=== PATIENT | female | born 1955 | race Hispanic/Latino ===

== ENCOUNTER 2018-10-25 17:21 | Emergency (ER) | payer OTHER ==
--- OUTSIDE RECORDS SUMMARY | 2018-10-25 17:23 | XMS REPORT ---
:1955 [facility] Address [address] [place] [address] Dr. Gonzalez [address] [place] [id number] Care Team Providers Name Role Phone Unavailable Unavailable Unavailable Problems This patient has no known problems. Allergies, Adverse Reactions, Alerts This patient has no known allergies or adverse reactions. Medications This patient has no known medications.
[2018-10-25] MEDS ORDERED: FENTANYL CITR 100 MCG/2 ML ONE (17:41)
[2018-10-25 17:57] LABS: Absolute Lymphocytes (CBC) 2.3 K/uL (0.7-4.9); Hematocrit 35.2 % (36.0-45.0); Lymphocytes % 28.7 % (15.3-44.8); MPV 8.4 fL (7.6-11.3)
[2018-10-25 18:12] LABS: Potassium 3.5 mmol/L (3.5-5.1)
--- NOTE | 2018-10-25 18:28 | RAD REPORT ---
EXAM DESCRIPTION: RAD - Forearm Right - 10/25/2018 6:15 pm CLINICAL HISTORY: Right arm pain status post fall FINDINGS: Markedly displaced fracture involves the distal diaphysis right radius with angulation at the fracture site Comminuted avulsion fracture involves the ulnar styloid process
[2018-10-25] MEDS ORDERED: KETAMINE HCL 500 MG/5 ML VIAL ONE (18:43)
[2018-10-25] MEDS ORDERED: CEFAZOLIN/SWI 1gm 1 GM/10 ML SYR ONE (18:44)
[2018-10-25] MEDS ORDERED: ONDANSETRON 4 MG/2 ML VIAL ONE (18:46)
--- NOTE | 2018-10-25 19:44 | RAD REPORT ---
EXAM DESCRIPTION: RAD - Forearm Right - 10/25/2018 7:35 pm CLINICAL HISTORY: Right arm pain status post fall FINDINGS: A splint immobilizes previously described fractures of the radius and ulna
--- NOTE | 2018-10-25 19:44 | EDPHYS ---
Physician Documentation [facility] Name: Mary Lawson Age: 63 yrs Sex: Female : 1955 Arrival Date: 10/25/2018 Time: 17:22 Bed 13 Private MD: Herber Roy ED Physician Jarvis Hale HPI: 10/25 17:39 This 63 yrs old Female presents to ER via Ambulatory with complaints of Fall snw Injury. 17:39 Details of fall: The patient fell from an upright position, while walking. Onset: The snw symptoms/episode began/occurred suddenly, just prior to arrival. Associated injuries: The patient sustained dorsal aspect of right forearm, deformity, obvious fracture, painful injury, right knee, abrasion, contusion. Severity of symptoms: At their worst the symptoms were severe. The patient has not experienced similar symptoms in the past. It is unknown whether or not the patient has recently seen a physician. history of aortic valve surgery on coumadin. Historical: - Allergies: 17:37 No Known Allergies; hb - Immunization history:: Adult Immunizations up to date. - Social history:: Smoking status: Patient/guardian denies using tobacco. - Ebola Screening: : No symptoms or risks identified at this time. ROS: 17:39 Constitutional: Negative for fever, chills, and weight loss, Eyes: Negative for injury, snw pain, redness, and discharge, ENT: Negative for injury, pain, and discharge, Neck: Negative for injury, pain, and swelling, Cardiovascular: Negative for chest pain, palpitations, and edema, Respiratory: Negative for shortness of breath, cough, wheezing, and pleuritic chest pain, Abdomen/GI: Negative for abdominal pain, nausea, vomiting, diarrhea, and constipation, Back: Negative for injury and pain, : Negative for injury, bleeding, discharge, and swelling, Skin: Negative for injury, rash, and discoloration, Neuro: Negative for headache, weakness, numbness, tingling, and seizure. 17:39 MS/extremity: Positive for injury or acute deformity, deformity, pain, of the dorsal aspect of right forearm and right wrist, abrasion to right knee as well. Exam: 17:37 Constitutional: This is a well developed, well nourished patient who is awake, alert, snw and in no acute distress. Head/Face: Normocephalic, atraumatic. Eyes: Pupils equal round and reactive to light, extra-ocular motions intact. Lids and lashes normal. Conjunctiva and sclera are non-icteric and not injected. Cornea within normal limits. Periorbital areas with no swelling, redness, or edema. ENT: Nares patent. No nasal discharge, no septal abnormalities noted. Tympanic membranes are normal and external auditory canals are clear. Oropharynx with no redness, swelling, or masses, exudates, or evidence of obstruction, uvula midline. Mucous membranes moist. Neck: Trachea midline, no thyromegaly or masses palpated, and no cervical lymphadenopathy. Supple, full range of motion without nuchal rigidity, or vertebral point tenderness. No Meningismus. Chest/axilla: Normal chest wall appearance and motion. Nontender with no deformity. No lesions are appreciated. Cardiovascular: Regular rate and rhythm with a normal S1 and S2. No gallops, murmurs, or rubs. Normal PMI, no JVD. No pulse deficits. Respiratory: Lungs have equal breath sounds bilaterally, clear to auscultation and percussion. No rales, rhonchi or wheezes noted. No increased work of breathing, no retractions or nasal flaring. Abdomen/GI: Soft, non-tender, with normal bowel sounds. No distension or tympany. No guarding or rebound. No evidence of tenderness throughout. Back: No spinal tenderness. No costovertebral tenderness. Full range of motion. Neuro: Awake and alert, GCS 15, oriented to person, place, time, and situation. Cranial nerves II-XII grossly intact. Motor strength 5/5 in all extremities. Sensory grossly intact. Cerebellar exam normal. Normal gait. Psych: Awake, alert, with orientation to person, place and time. Behavior, mood, and affect are within normal limits. 17:37 Skin: Appearance: normal except for affected area, injury, abrasion(s), small abrasion noted, of the right knee, obvious fracture of right forearm, closed, pulses present, sensation present. Vital Signs: 17:35 BP 168 / 94; Pulse 65; Resp 16; Temp 98.1; Pulse Ox 100% on R/A; Weight 79.38 kg; hb Height 5 ft. 2 in. (157.48 cm); Pain 10/10; 18:35 BP 164 / 82; Pulse 72; Resp 17; Pulse Ox 100% on R/A; sg 19:25 rr5 20:50 BP 154 / 78; Pulse 60; Resp 17; Temp 98; Pulse Ox 100% on R/A; rr5 21:30 BP 133 / 70; Pulse 62; Resp 17; Pulse Ox 99% on R/A; rr5 17:35 Body Mass Index 32.01 (79.38 kg, 157.48 cm) hb 19:25 succeeding VS please see the sedation form. rr5 [place] Coma Score: 17:35 Eye Response: spontaneous(4). Verbal Response: oriented(5). Motor Response: obeys hb commands(6). Total: 15. 18:35 Eye Response: spontaneous(4). Verbal Response: oriented(5). Motor Response: obeys sg commands(6). Total: 15. Trauma Score (Adult): 17:35 Eye Response: spontaneous(1); Verbal Response: oriented(1); Motor Response: obeys hb commands(2); Systolic BP: > 89 mm Hg(4); Respiratory Rate: 10 to 29 per min(4); [place] Score: 15; Trauma Score: 12 18:35 Eye Response: spontaneous(1); Verbal Response: oriented(1); Motor Response: obeys sg commands(2); Systolic BP: > 89 mm Hg(4); Respiratory Rate: 10 to 29 per min(4); [place] Score: 15; Trauma Score: 12 Procedures: 19:46 Reduction: of the right wrist, using traction, manipulation, Immobilized with OCL snw splint, Patient tolerated well. Post reduction film - reveals improved alignment. Moderate sedation: Pre-procedure assessment: the patient has been NPO 4 hour(s) prior to arrival, ASA physical classification: II - mild/mod systemic disease that does not interfere with daily routines, Airway assessment: able to hyperextend neck, able to maintain airway, can open mouth without difficulty, Mallampati classification of tongue size: II - faucial pillars and soft palate can be visualized, but uvula is masked by the base of the tongue, Monitoring during procedure: ekg monitor, continuous pulse oximetry, nurse at bedside at all times, Medications employed: Ketamine, 120 mg(s), Post-procedure assessment: the patient is not sedated, Respiratory status: even and unlabored, a reversal agent was not used. MDM: 17:28 Patient medically screened. snw 19:45 Data reviewed: vital signs, nurses notes. Data interpreted: Pulse oximetry: on room air snw is 100 %. Interpretation: normal. Counseling: I had a detailed discussion with the patient and/or guardian regarding: the historical points, exam findings, and any diagnostic results supporting the discharge/admit diagnosis, the presence of at least one elevated blood pressure reading (>120/80) during this emergency department visit, lab results, radiology results, the need for outpatient follow up, to return to the emergency department if symptoms worsen or persist or if there are any questions or concerns that arise at home. Response to treatment: the patient's symptoms have markedly improved after treatment. Special discussion: I have referred the patient to see his PCP for further evaluation of high blood pressure. I discussed in detail with the patient the higher chance of wound infection based on his presenting history. Based on the history and exam findings, there is no indication for further emergent testing or inpatient evaluation. I discussed with the patient/guardian the need to see the orthopedic surgeon for further evaluation of the symptoms. I discussed with the patient/guardian the need to see the primary care provider for further evaluation of the symptoms. 10/25 17:37 Order name: CBC with Diff; Complete Time: 18:04 snw 10/25 17:37 Order name: Chem 7; Complete Time: 18:15 snw 10/25 17:37 Order name: Forearm Right XRAY; Complete Time: 18:31 snw 10/25 19:15 Order name: Forearm Right XRAY; Complete Time: 19:58 rr5 10/25 17:37 Order name: Ice pack; Complete Time: 17:48 snw 10/25 17:37 Order name: Wound Care; Complete Time: 17:48 snw 10/25 17:37 Order name: Wound dressing; Complete Time: 17:48 snw 10/25 17:37 Order name: IV Start; Complete Time: 17:48 snw 10/25 18:27 Order name: Misc. Order: fingertraps; Complete Time: 18:42 snw 10/25 18:43 Order name: Conscious Sedation; Complete Time: 19:38 sg 10/25 18:44 Order name: Conscious Sedation; Complete Time: 18:44 sg 10/25 18:46 Order name: Shari Calderon Forearm Splint; Complete Time: 19:32 snw Administered Medications: 17:47 Drug: fentaNYL (PF) 50 mcg {Note: RASS +1.} Route: IVP; Site: left antecubital; sg 19:00 Follow up: Response: RASS: Light sedation (-2) rr5 21:00 Follow up: Response: No adverse reaction rr5 18:38 Drug: fentaNYL (PF) 25 mcg Route: IVP; Site: left antecubital; sg 19:00 Follow up: Response: RASS: Light sedation (-2) rr5 21:00 Follow up: Response: RASS: Alert and Calm (0) rr5 19:00 Drug: Ketamine 1 mg/kg Route: IVP; Site: left antecubital; sg 20:00 Follow up: Response: RASS: Light sedation (-2) rr5 21:00 Follow up: Response: RASS: Alert and Calm (0) rr5 19:40 Drug: Ancef 1 grams Route: IVPB; Site: left antecubital; rr5 Disposition: 10/26 09:27 Co-signature as Attending Physician, Jarvis Hale MD I agree with the assessment and charley plan of care. Disposition: 10/25/18 19:42 Discharged to Home. Impression: Fall on same level, unspecified, Unspecified fracture of right forearm - distal forearm, Displaced fracture of right ulna styloid process. - Condition is Stable. - Discharge Instructions: Cast or Splint Care, Adult, Fall Prevention in the Home, RICE for Routine Care of Injuries, How to Use a Sling. - Prescriptions for Mobic 7.5 mg Oral Tablet - take 1 tablet by ORAL route once daily take with food; 10 tablet. Tylenol- Codeine #3 300-30 mg Oral Tablet - take 2 tablets by ORAL route every 6 hours As needed; 20 tablet. - Medication Reconciliation Form, Thank You Letter, Antibiotic Education, Prescription Opioid Use form. - Follow up: Levi Shah MD; When: 2 - 3 days; Reason: Recheck today's complaints, Continuance of care. Signatures: Dispatcher [employer] Michael Ortiz RN RN sg Anderson, Corey, MD MD cha Therrien, Shelly, STATION OPERATOR-C STATION OPERATOR-CsnNicole Rincon, RN RN John Reyes RN RN rr5 Corrections: (The following items were deleted from the chart) 10/25 19:43 19:42 10/25/2018 19:42 Discharged to Home. Impression: Fall on same level, unspecified. snw Condition is Stable. Forms are Medication Reconciliation Form, Thank You Letter, Antibiotic Education, Prescription Opioid Use. Follow up: Dr. Levi Shah; When: 2 - 3 days; Reason: Recheck today's complaints, Continuance of care. snw 21:34 19:43 10/25/2018 19:42 Discharged to Home. Impression: Fall on same level, unspecified; rr5 Unspecified fracture of right forearm - distal forearm; Displaced fracture of right ulna styloid process. Condition is Stable. Forms are Medication Reconciliation Form, Thank You Letter, Antibiotic Education, Prescription Opioid Use. Follow up: Dr. Levi Shah; When: 2 - 3 days; Reason: Recheck today's complaints, Continuance of care. snw
--- NOTE | 2018-10-25 19:44 | ER ---
Nurse's Notes [facility] Name: Mary Lawson Age: 63 yrs Sex: Female : 1955 Arrival Date: 10/25/2018 Time: 17:22 Bed 13 Private MD: Herber Roy Diagnosis: Fall on same level, unspecified;Unspecified fracture of right forearm-distal forearm;Displaced fracture of right ulna styloid process Presentation: 10/25 17:34 Presenting complaint: Right wrist and right knee pain after mechanical fall from hb standing. Obvious deformity to right wrist and abrasion to right knee noted. Denies other injuries. Negative LOC. Care prior to arrival: Medication(s) given: Motrin, 600 mg. Mechanism of Injury: Fall from standing position. Trauma event details: Injury occurred in the [facility] [place], Injury occurred: at home. Injury occurred: October 25, 2018. 17:34 Acuity: CONSTANCE 3 hb 17:34 Method Of Arrival: Ambulatory hb Historical: - Allergies: 17:37 No Known Allergies; hb - Immunization history:: Adult Immunizations up to date. - Social history:: Smoking status: Patient/guardian denies using tobacco. - Ebola Screening: : No symptoms or risks identified at this time. Screenin:35 Abuse screen: Denies threats or abuse. Denies injuries from another. Tuberculosis hb screening: No symptoms or risk factors identified. Primary Survey: 17:35 NO uncontrolled hemorrhage observed. A: The patient is alert. Airway: patent, No hb supplemental oxygen in use on arrival. Oral cavity: clear. Breathing/Chest: Respiratory pattern: regular, Respiratory effort: spontaneous, unlabored, Chest inspection: symmetrical rise and fall of the chest. Circulation: Pulses: palpable . Skin color: pink, Skin temperature: warm, dry. Disability Alert. Exposure/Environment: There is no evidence of uncontrolled external bleeding. Obvious injury(ies) are noted at this time: obvious deformity to right wrist, abrasion to right outer wrist, abrasion to right knee A warming method has been applied: A warm blanket has been provided to the patient. 19:20 Reassessment Airway Airway Patent Oxygen Ventilator Breathing/Chest Respiratory pattern rr5 Regular Respiratory effort Spontaneous Unlabored Circulation Heart rhythm Sinus rhythm Disability Verbal stimuli. Secondary Survey: 19:20 HEENT: No deficits noted. Gastrointestinal: No deficits noted. : No signs and/or rr5 symptoms were reported regarding the genitourinary system. Musculoskeletal: Capillary refill < 3 seconds. 19:20 Injury Description: fracture to is located right wrist swollen right knee with abrasion.rr5 Assessment: 18:00 General: Appears in no apparent distress. well groomed, well developed, well nourished, sg Behavior is calm, cooperative, appropriate for age. Pain: Complains of pain in right wrist Quality of pain is described as aching, throbbing. Neuro: Level of Consciousness is awake, alert, obeys commands, Oriented to person, place, time, Director Communications are equal bilaterally Moves all extremities. Full function Gait is steady, Speech is normal, Facial symmetry appears normal, Pupils are PERRLA. Cardiovascular: Heart tones S1 S2 present Capillary refill is brisk in bilateral fingers Patient's skin is warm and dry. Chest pain is denied. Respiratory: Airway is patent Respiratory effort is even, unlabored, Respiratory pattern is regular, symmetrical, Breath sounds are clear bilaterally. GI: No signs and/or symptoms were reported involving the gastrointestinal system. : No signs and/or symptoms were reported regarding the genitourinary system. EENT: No signs and/or symptoms were reported regarding the EENT system. Derm: Skin is pink, warm \T\ dry. Musculoskeletal: Circulation, motion, and sensation intact. Range of motion: limited in right wrist deformity noted to right wrist. 19:00 Reassessment: Patient appears in no apparent distress at this time. conscious sedation sg for closed reduction of right wrist/forearm. 19:25 Reassessment: Patient appears in no apparent distress at this time. patient received rr5 post conscious sedation manual reduction of right forearm. 19:25 General: Appears in no apparent distress. Behavior is drowsy. Pain: Unable to use pain rr5 scale. Patient appears to be moaning, sedated. Neuro: Level of Consciousness is sedated. Pupils are PERRLA. Cardiovascular: Capillary refill < 3 seconds Patient's skin is warm and dry. Respiratory: Airway is patent Respiratory effort is even, unlabored, Respiratory pattern is regular, symmetrical. GI: No signs and/or symptoms were reported involving the gastrointestinal system. : No signs and/or symptoms were reported regarding the genitourinary system. EENT: No signs and/or symptoms were reported regarding the EENT system. Derm: Wound noted right wrist and right forearm Wound is abrasion. Musculoskeletal: Capillary refill < 3 seconds. 20:05 Reassessment: Patient appears in no apparent distress at this time. patient still rr5 drowsy. awaiting to become fully awake then for discharge. 20:49 Reassessment: Patient appears in no apparent distress at this time. Patient and/or rr5 family updated on plan of care and expected duration. Pain level reassessed. Patient is alert, oriented x 3, equal unlabored respirations, skin warm/dry/pink. reassess by ED provider patient is awake and respond to verbal command. oxygen discontinued. 21:30 Reassessment: Patient appears in no apparent distress at this time. Patient and/or rr5 family updated on plan of care and expected duration. Pain level reassessed. Patient is alert, oriented x 3, equal unlabored respirations, skin warm/dry/pink. discharge instruction given and explained to patient and multi care technician without complaints made. assisted thru wheelchair going to private car. Patient states feeling better. Patient states symptoms have improved. Vital Signs: 17:35 BP 168 / 94; Pulse 65; Resp 16; Temp 98.1; Pulse Ox 100% on R/A; Weight 79.38 kg; hb Height 5 ft. 2 in. (157.48 cm); Pain 10/10; 18:35 BP 164 / 82; Pulse 72; Resp 17; Pulse Ox 100% on R/A; sg 19:25 rr5 20:50 BP 154 / 78; Pulse 60; Resp 17; Temp 98; Pulse Ox 100% on R/A; rr5 21:30 BP 133 / 70; Pulse 62; Resp 17; Pulse Ox 99% on R/A; rr5 17:35 Body Mass Index 32.01 (79.38 kg, 157.48 cm) hb 19:25 succeeding VS please see the sedation form. rr5 [place] Coma Score: 17:35 Eye Response: spontaneous(4). Verbal Response: oriented(5). Motor Response: obeys hb commands(6). Total: 15. 18:35 Eye Response: spontaneous(4). Verbal Response: oriented(5). Motor Response: obeys sg commands(6). Total: 15. Trauma Score (Adult): 17:35 Eye Response: spontaneous(1); Verbal Response: oriented(1); Motor Response: obeys hb commands(2); Systolic BP: > 89 mm Hg(4); Respiratory Rate: 10 to 29 per min(4); [place] Score: 15; Trauma Score: 12 18:35 Eye Response: spontaneous(1); Verbal Response: oriented(1); Motor Response: obeys sg commands(2); Systolic BP: > 89 mm Hg(4); Respiratory Rate: 10 to 29 per min(4); [place] Score: 15; Trauma Score: 12 ED Course: 17:22 Patient arrived in ED. dl4 17:22 Herber Roy MD is Private Physician. dl4 17:27 [facility]olen [facility]C [facility] snw 17:27 Jarvis Hale MD is Attending Physician. snw 17:35 Triage completed. hb 17:37 Arm band placed on. hb 17:40 Michael Prado RN is Primary Nurse. sg 17:44 Initial lab(s) drawn, by wv, sent to lab. Inserted saline lock: 20 gauge in left dh3 antecubital area, using aseptic technique. Blood collected. 18:15 Forearm Right XRAY In Process Unspecified. EDMS 19:00 Assist provider with reduction of right wrist using manipulation, Set up for procedure. sg Performed by Tiffanie AYALA Immobilized with sling, Patient tolerated well. 19:12 Orthoglass splint: Sugar tong splint applied on right arm. capillary refill < 3 dh3 seconds, viewed by Tiffanie Nolen, N.P. 19:20 Oxygen administration via Venturi mask \T\ 15L/min - 50% Response to oxygen therapy: rr5 symptoms improved. 19:30 Patient has correct armband on for positive identification. Bed in low position. Call sg light in reach. Side rails up X2. Report given to John BERGER. threat monitoring analyst on. Pulse ox on. NIBP on. Warm blanket given. Head of bed elevated. 19:36 Forearm Right XRAY In Process Unspecified. EDMS 19:39 Elevated right arm. sg 19:42 Levi Shah MD is Referral Physician. snw 21:30 IV discontinued, intact, bleeding controlled, No redness/swelling at site. Pressure rr5 dressing applied. Administered Medications: 17:47 Drug: fentaNYL (PF) 50 mcg {Note: RASS +1.} Route: IVP; Site: left antecubital; sg 19:00 Follow up: Response: RASS: Light sedation (-2) rr5 21:00 Follow up: Response: No adverse reaction rr5 18:38 Drug: fentaNYL (PF) 25 mcg Route: IVP; Site: left antecubital; sg 19:00 Follow up: Response: RASS: Light sedation (-2) rr5 21:00 Follow up: Response: RASS: Alert and Calm (0) rr5 19:00 Drug: Ketamine 1 mg/kg Route: IVP; Site: left antecubital; sg 20:00 Follow up: Response: RASS: Light sedation (-2) rr5 21:00 Follow up: Response: RASS: Alert and Calm (0) rr5 19:40 Drug: Ancef 1 grams Route: IVPB; Site: left antecubital; rr5 Outcome: 19:42 Discharge ordered by . snw 21:30 Discharged to home via wheelchair, with family. rr5 21:30 Condition: stable 21:30 Discharge instructions given to patient, family, Instructed on discharge instructions, follow up and referral plans. medication usage, Demonstrated understanding of instructions, follow-up care, medications, Prescriptions given X 2. 21:30 Patient's length of stay in the Emergency Department was greater than 2 hours. awaiting rr5 for the patient to be fully awakePatient's length of stay extended due to 21:34 Patient left the ED. rr5 Signatures: Dispatcher [employer] EDMichael Nicholas RN RN sg Therrien, Shelly, POLICE OFFICER CRIME PREVENTION-C POLICE OFFICER CRIME PREVENTION-Csnw Nicole Keith RN RN hb Herrera, Deanna 3 John Reyes RN RN rr5 Angelo Bragg dl4
== END 2018-10-25 21:34 | disposition home or self-care (01) ==
LOC: ER 17:21
PROC: 0PSHXZZ Reposition Right Radius, External Approach (ICD-10-PCS; principal; 2018-10-25)
DX: S52.501A Unspecified fracture of the lower end of right radius, initial encounter for closed fracture (principal); S52.611A Displaced fracture of right ulna styloid process, initial encounter for closed fracture; W18.30XA Fall on same level, unspecified, initial encounter; Y93.9 Activity, unspecified; Y92.9 Unspecified place or not applicable
CPT/HCPCS: 85025; 80048; 36415; 73090 ×2; 96375; 96374; 99285; 25605; J3010; J0690; J2405

== ENCOUNTER 2018-11-04 06:47 | Day surgery (SDC) | payer OTHER ==
[2018-10-30 11:28] LABS: Absolute Lymphocytes (CBC) 1.9 K/uL (0.7-4.9); Basophils % 1.1 % (0-1.3); Lymphocytes % 21.2 % (15.3-44.8); MPV 8.5 fL (7.6-11.3); RBC Red Blood Cell Count 3.95 M/uL (3.86-4.86)
[2018-10-30 11:31] LABS: Protime INR 1.43
[2018-10-30 11:40] LABS: Potassium 4.3 mmol/L (3.5-5.1)
--- NOTE | 2018-10-30 12:24 | RAD REPORT ---
EXAM DESCRIPTION: RAD - Chest Pa And Lat (2 Views) - 10/30/2018 11:26 am CLINICAL HISTORY: preoppatient is pending right arm fracture repair COMPARISON: None. TECHNIQUE: PA and lateral views of the chest were obtained. FINDINGS: The lungs are clear of a peripheral mass or infiltrate. Interstitial pattern is within nor mal range. No failure or volume overload. Sternotomy wires are in place. Cardiac valve surgical garibay es noted. Heart size is normal and central vasculature is within normal limits. No pleural effusio n or pneumothorax seen. No acute bony finding noted. No aortic abnormality. IMPRESSION: No acute cardiopulmonary process.
--- OUTSIDE RECORDS SUMMARY | 2018-11-04 06:49 | XMS REPORT ---
:1955 [facility] Address [address] [place] [address] Dr. Gonzalez [address] [place] [id number] Care Team Providers Name Role Phone Unavailable Unavailable Unavailable Problems This patient has no known problems. Allergies, Adverse Reactions, Alerts This patient has no known allergies or adverse reactions. Medications This patient has no known medications.
--- OUTSIDE RECORDS SUMMARY | 2018-11-04 06:49 | XMS REPORT ---
:1955 Author Organization eClinicalWorks Care Team Providers Name Role Phone Levi Shah Provider Role Unavailable Allergies, Adverse Reactions, Alerts Substance Reaction Event Type N.K.D.A. Info Not Available Non Drug Allergy Problems Problem Type Condition Code Onset Dates Condition Status Assessment Closed Galeazzi''s fracture of S52.371A Active right radius, initial encounter Problem Abnormal mammogram of both breasts R92.8 Active Assessment Right forearm pain M79.631 Active Medications Medication Code Code Instructions Start End Status Dosage System Date Date Hydrochlorothiazide [facility] 81086692544 25 MG Orally Active 1 tablet Once a day in the morning HydrALAZINE HCl ND 47704061926 50 MG Orally Active 1 tablet Three times a with food day Oxybutynin Chloride ND 68060331836 10 MG Orally Active 1 tablet ER Once a day Levothyroxine Sodium ND 88073730874 88 MCG Orally Active 1 tablet Once a day on an empty stomach in the morning Losartan Potassium ND 38812591693 100 MG Orally Active 1 tablet Once a day Warfarin Sodium ND 02493893502 4 MG Orally Active 1 tablet Once a day Montelukast Sodium ND 81187546921 10 MG Orally Active 1 tablet Once a day Atorvastatin Calcium [facility] [address]-62 Active not defined Results No Known Results Summary Purpose eClinicalWorks Submission
[2018-11-04] MEDS ORDERED: Ringers Lactate 1,000 ML IV ONE ×2 (07:21→11:36)
[2018-11-04] MEDS ORDERED: CEFAZOLIN/SWI 1gm 2 GM/20 ML SYR ONE (07:21)
[2018-11-04] MEDS ORDERED: MIDAZOLAM HCL 2 MG/2 ML INJ ONE (09:28)
[2018-11-04] MEDS ORDERED: LIDOCAINE 2% MPF 5 ML VIAL ONE (10:00)
[2018-11-04] MEDS ORDERED: FENTANYL CITR 100 MCG/2 ML ONE (10:00)
[2018-11-04] MEDS ORDERED: PROPOFOL 200 MG/20 ML VIAL IV ONE (10:00)
[2018-11-04] MEDS ORDERED: KETOROLAC 30 MG/ML INJ ONE (11:43)
--- NOTE | 2018-11-04 12:08 | RAD REPORT ---
EXAM DESCRIPTION: RAD - Forearm Right - 11/04/2018 11:56 am CLINICAL HISTORY: Radial fracture FINDINGS: Eleven fluoroscopic spot images obtained. Fluoroscopy time 0.7 minutes Sideplate and screws affix radial fracture in good alignment. Surgery performed by Dr. Shah
[2018-11-04] MEDS: MORPHINE 4 MG/ML SYR ONE ×2 (12:16→12:24)
--- NOTE | 2018-11-04 12:18 | P.BOP ---
Preoperative diagnosis: right radial shaft fracture, right DRUJ injury Postoperative diagnosis: same Primary procedure: open reduction internal fixation right radial shaft fracture Secondary procedure: closed treatment right DRUJ injury Signwriter: NONE,NONE Estimated blood loss: 10 cc Specimen: none Findings: see dictation Anesthesia: General Complications: None Implants: 6 hole Acumed small frag plate Fluids & blood products: per anesthesia record; TT: 69 mins @ 250 mmHg Transferred to: Recovery Room Condition: Good
[2018-11-04] MEDS: HYDROMORPHONE HCL 2 MG/ML inj ONE ×4 (12:33→12:56)
[2018-11-04 12:56] VITALS: O2SAT 100
--- NOTE | 2018-11-04 12:56 | RAD REPORT ---
EXAM DESCRIPTION: RAD - Forearm Right - 11/04/2018 12:49 pm CLINICAL HISTORY: Radial fracture FINDINGS: Sideplate and screws affix a radial fracture in good alignment. Avulsion fracture ulnar styloid
[2018-11-04] MEDS ORDERED: HYDROCODONE/APAP 7.5/325 MG TAB ONE (13:26)
[2018-11-04] MEDS ORDERED: HYDROCODONE/APAP 7.5/325 MG TAB PO ONE (13:30)
[2018-11-04 14:05] VITALS: BP 137/56; TEMP 98
--- NOTE | 2018-11-06 08:41 | OP ---
Surgeon: Levi Shah MD Preoperative Diagnoses: 1.Right radial shaft fracture. 2.Right distal radioulnar joint injury. Postoperative Diagnoses: 1.Right radial shaft fracture. 2.Right distal radioulnar joint injury. Procedure Performed: 1.Open reduction and internal fixation of right radial shaft fracture. 2.Closed treatment of right DRUJ injury. Anesthesia: General LMA. Fluids: Per Anesthesia record. Estimated Blood Loss: . Implants: A 6-hole Acumed anatomic forearm plate. Indication For Procedure: Mary is a 63-year-old female, presented to my clinic after sustaining a n injury on her right upper extremity with fracture pattern with fracture to the radial sh aft and destruction of the DRUJ distally. Patient was seen in the ER with right-sided sugar tong spl int. I suggested the patient outlying the recurrent fracture pattern and instability. I recommended operative treatment. She expressed understanding and elected to proceed with operative treatment. Description Of Procedure: After informed consent was obtained, the patient was identified in the pre operative holding area. The right upper extremity was marked. Patient was then brought back to the operating room and transferred on the operating table in a supine fashion and placed under general LM A anesthesia. The right upper extremity was then prepped and draped in usual sterile fashion. A juan m e-out was initiated. The correct patient and procedure were confirmed and identified. Patient had re ceived her preoperative prophylactic antibiotics. The right upper extremity was then exsanguinated u sing an Esmarch and the tourniquet was inflated at 350 mmHg. Approximately, a 10 cm longitudinal inc ision was made over the volar forearm in a volar Romero approach. Over the FCR tendon, dissection was taken down to the FCR tendon sheath with a splint and divided. FCR tendon was then gently retracted radially. The floor of the tendon sheath was then incised with a splint proximally and distally. B diane dissection was then taken down to the radial shaft fracture, . A 6-hole Acumed anatom ic forearm plate was placed on the radius. There was good overall reduction pinned into p osition. A 3.5 cortical screw was placed distally just distal to the fracture followed by a 3.5 elton ical screw in bicortical fashion proximally. AP and lateral views using fluoroscopy and g ood position of the plate. Under fluoroscopy, the DRUJ was evaluated and was noted to be stable with radius was fixed. The DRUJ was shucked with manipulation and there was no instability noted ___. The wound was then irrigated thoroughly with normal saline. Subcutaneous tissue was approximat ed using a 2-0 Vicryl. Skin was approximated using a 3-0 Monocryl. Sterile dressings were applied. Patient was placed in a sugar-tong splint, awakened, and transferred to PACU in stable condition. Postoperative Plan: She will follow up next week for wound care . We will follow up with PCP discontinuing the Lovenox. GO/VIPIN Voice ID: [id number] Report ID: [id number]
== END 2018-11-04 14:02 | disposition home or self-care (01) ==
LOC: OR 06:47
PROVIDERS: ATTEND Orthopaedic Surgery Sports Medicine
PROC: 0RSNXZZ Reposition Right Wrist Joint, External Approach (ICD-10-PCS; 2018-11-04)
PROC: 0PSH04Z Reposition Right Radius with Internal Fixation Device, Open Approach (ICD-10-PCS; principal; 2018-11-04 09:00)
DX: S52.371A Galeazzi's fracture of right radius, initial encounter for closed fracture (principal); S63.014A Dislocation of distal radioulnar joint of right wrist, initial encounter; I10 Essential (primary) hypertension; E78.00 Pure hypercholesterolemia, unspecified; I25.2 Old myocardial infarction; Z79.01 Long term (current) use of anticoagulants; Z95.2 Presence of prosthetic heart valve; Z82.49 Family history of ischemic heart disease and other diseases of the circulatory system
CPT/HCPCS: 25525; 85025; 80048; 36415; 85610; 85730; 71046; 73090 ×2; J2704; J2250; J1170; J3010; J0690

== ENCOUNTER 2020-05-17 18:53 | Emergency (ER) | payer OTHER ==
--- OUTSIDE RECORDS SUMMARY | 2020-05-17 18:57 | XMS REPORT | Continuity of Care Document ---
:1955 Author Organization [facility] t Address [address] [place] [address] Care Team Providers Name Role Phone DR MARTÍNEZ Attending Clinician Unavailable DR FELISA Attending Clinician Unavailable DR MARTÍNEZ Admitting Clinician Unavailable DR FELISA Admitting Clinician Unavailable Problems Condition Condition Condition Status Onset Resolution Last Treating Co mments Source Name Details Category Date Date Treatment Clinician Date Abnormal Abnormal Problem [facility] - of both of both Memoria breasts breasts [facility] Pain in Pain in Diagnosis Active [facility] right right [facility] - forearm forearm [facility] ent Clinics Closed Closed Diagnosis Active [facility] Galeazzi's Galeazzi's [facility] - fracture fracture Memori a of right of right l radius radius Outpati with with ent routine routine Clinics healing healing Right Right Diagnosis Active [facility] wrist pain wrist pain Winsome kes - Memoria [facility] Allergies, Adverse Reactions, Alerts This patient has no known allergies or adverse reactions. Medications Ordered Filled Start Stop Current Ordering Indication Dosage Frequency Signature Comments Components Source Medication Medication Date Date Medication? Clinician (SIG) Name Name Tramadol Tramadol Yes Levi [address] [facility] HCl HCl 9-16 Shah as needed [facility] - 00:00: Memoria 00 [facility] Lovenox Lovenox Yes Levi as [facility] 9-05 Shah directed [facility] - 00:[facility]: [facility] 00 [facility] Warfarin Warfarin Yes Levi [address] [facility] Sodium Sodium Shah Formerly named [facility] Losartan Losartan Yes Levi [address] [facility] Potassium Potassium Shah [facility] Hydrochloro Hydrochloro Yes Levi [address] [facility] thiazide thiazide Shah in the [facility] - morning [facility] Levothyroxi Levothyroxi Yes Levi [address] [facility] ne Sodium ne Sodium Shah on an Luke s - empty [facility]oria stomach [facility] Oxybutynin Oxybutynin Yes Levi [address] [facility] Chloride ER Chloride ER Shah L ukes - [facility] Atorvastati Atorvastati Yes Levi not [facility] n Calcium n Calcium Shah defined Winsome kes - Memoria l [facility] ent Clinics HydrALAZINE HydrALAZINE Yes Levi [address] [facility] [address] HCl HCl Shah with food [facility] Montelukast Montelukast Yes Levi [address] [facility] Sodium Sodium Shah [facility] - [facility] Clinics Nitrofurant Nitrofurant Yes Levi TAKE [address] [facility] oin Monohyd oin Monohyd Shah CAPSULE BY [facility] - Macro Macro MOUTH Memoria TWICE l DAILY [facility] Clin[facility] Procedures This patient has no known procedures. Encounters Start End Encounter Admission Attending Care Care Encounter Source Date/Time Date/Time Type Type Clinicians Facility Department ID 2020-04-20 2020-04-20 Outpatient eDny SOLIZ [facility] [id number] [place] 13:53:00 23:59:00 [facility] 2019-04-21 2019-04-21 Outpatient ONI ANAND [facility] [id number] [place] 09:00:00 23:59:00 Med[facility] 2019-04-08 2019-04-08 Outpatient Erick Nelson [id number] [facility] 13:30:00 13:30:00 t Bone Bone and [facility] - and Joint [facility] [place], [facility] by [facility] 2019-02-04 2019-02-04 Outpatient Erick Nelson [id number] [address] 14:00:00 14:00:00 t Bone Bone and [facility] - and Joint [facility] [place], operated by [facility] ent Clinics 2018-12-22 2018-12-22 Outpatient Erick Nelson [id number] [facility] 14:00:00 14:00:00 t Bone Bone and [facility] - and Joint [facility] [place], operated [facility] ent Clinics 2018-12-18 2018-12-18 Outpatient Erick Nelson [id number] 08:54:00 08:54:00 t Bone Bone and [facility] - and Joint [facility] [place], [facility] by [facility] ent Clinics 2018-12-07 2018-12-07 [facility] [id number] [facility] 15:30:00 15:30:00 t Bone Bone and [facility] - and Joint [facility] [place], operated by [facility] 2018-11-16 2018-11-16 [facility] [id number] 11:00:00 11:00:00 t Bone Bone and [facility] - and Joint [facility] [place], [facility] by [facility] 2018-11-09 2018-11-09 [facility] [id number] 15:00:00 15:00:00 t Bone Bone and [facility] - and Joint [facility] [place], operated by [facility] 2018-11-05 2018-11-05 [facility] [id number] 09:42:00 09:42:00 t Bone Bone and [facility] - and Joint [facility] of [facility] 2018-10-31 2018-10-31 [facility] [id number] 21:14:00 21:14:00 t Bone Bone and [facility] - and Joint [facility] of [facility] ent [facility] 2018-10-29 2018-10-29 [facility] [id number] 11:55:00 11:55:00 t Bone Bone and [facility] - and Joint [facility] Clinic of [facility] ent [facility] 2018-10-29 2018-10-29 [facility] [id number] 11:37:00 11:37:00 t Bone Bone and [facility] - and [facility] 2018-10-28 2018-10-28 [facility] [id number] 11:23:00 11:23:00 t Bone Bone and [facility] - and Joint [facility] [place], operated by [facility] 2018-10-27 2018-10-27 [facility] [id number] 14:00:00 14:00:00 t Bone Bone and [facility] - [facility] Clin[facility] Results Test Description Test Time Test Comments Results Result Comments Source BUN & CREATININE 2019-04-21 08:10:00 Test Item Value Reference Range Interpretation Comme nts BUN (test code = 05D) 25 mg/dL 7-18 H CREATININE (test code = 03E) 0.9 mg/dL 0.4-1.1 BUN/CREA (test code = BCR) 28 12-20 H
[2020-05-17 22:14] LABS: Absolute Lymphocytes (CBC) 2.2 K/uL (0.7-4.9); Basophils % 1.2 % (0-1.3); Hematocrit 37.1 % (36.0-45.0); Lymphocytes % 27.5 % (15.3-44.8); MPV 9.1 fL (7.6-11.3); RBC Red Blood Cell Count 4.16 M/uL (3.86-4.86)
[2020-05-17] MEDS ORDERED: HYDRALAZINE HCL 20 MG/ML VIAL ONE (22:14)
[2020-05-17 22:28] LABS: ALT/SGPT 42 U/L (12-78); AST/SGOT 29 U/L (15-37); Albumin 3.9 g/dL (3.4-5.0); Alkaline Phosphatase 83 U/L (45-117); BUN Blood Urea Nitrogen 9 mg/dL (7-18); Bicarbonate 28 mmol/L (21-32); Bilirubin Direct < 0.1 mg/dL (0-0.2); Bilirubin Total 0.4 mg/dL (0.2-1.0); Glucose Level 96 mg/dL (74-106); Lipase 99 U/L (73-393); Potassium 4.5 mmol/L (3.5-5.1); Sodium Level 143 mmol/L (136-145)
--- NOTE | 2020-05-18 00:18 | EDPHYS ---
Physician Documentation [facility] Name: Mary Lawson Age: 65 yrs Sex: Female : 1955 Arrival Date: 05/17/2020 Time: 19:08 Bed 8 Private MD: Herber Roy ED Physician Jarvis Hale HPI: 05/17 21:58 This 65 yrs old Female presents to ER via Ambulatory with complaints of jr8 Abdominal Pain, Headache. 21:59 Patient stated that she has had intermittent constipation with diarrhea for past couple jr8 of days. When bearing down has been getting headaches as well. Patient markedly hypertensive upon arrival . Severity of symptoms: At their worst the symptoms were mild in the emergency department the symptoms are unchanged. The patient has not experienced similar symptoms in the past. The patient has not recently seen a physician. Historical: - Allergies: 19:25 No Known Allergies; ca1 - PMHx: 19:25 R arm surgery; Hypertension; Thyroid problem; ca1 - PSHx: 19:25 Heart Surgery; Hysterectomy; ca1 - Immunization history:: Client reports receiving the 1st dose of the Covid vaccine, April 2020 Flu vaccine is up to date. - Social history:: Smoking status: Patient denies any tobacco usage or history of. ROS: 21:59 Eyes: Negative for injury, pain, redness, and discharge, ENT: Negative for injury, jr8 pain, and discharge, Neck: Negative for injury, pain, and swelling, Cardiovascular: Negative for chest pain, palpitations, and edema, Respiratory: Negative for shortness of breath, cough, wheezing, and pleuritic chest pain, Back: Negative for injury and pain, MS/Extremity: Negative for injury and deformity, Skin: Negative for injury, rash, and discoloration. 21:59 Abdomen/GI: Positive for abdominal pain, diarrhea, constipation, Negative for vomiting. 21:59 Neuro: Positive for headache. Exam: 21:59 Eyes: Pupils equal round and reactive to light, extra-ocular motions intact. Lids and jr8 lashes normal. Conjunctiva and sclera are non-icteric and not injected. Cornea within normal limits. Periorbital areas with no swelling, redness, or edema. ENT: Nares patent. No nasal discharge, no septal abnormalities noted. Tympanic membranes are normal and external auditory canals are clear. Oropharynx with no redness, swelling, or masses, exudates, or evidence of obstruction, uvula midline. Mucous membranes moist. Neck: Trachea midline, no thyromegaly or masses palpated, and no cervical lymphadenopathy. Supple, full range of motion without nuchal rigidity, or vertebral point tenderness. No Meningismus. Cardiovascular: Regular rate and rhythm with a normal S1 and S2. No gallops, murmurs, or rubs. Normal PMI, no JVD. No pulse deficits. Respiratory: Lungs have equal breath sounds bilaterally, clear to auscultation and percussion. No rales, rhonchi or wheezes noted. No increased work of breathing, no retractions or nasal flaring. Back: No spinal tenderness. No costovertebral tenderness. Full range of motion. Skin: Warm, dry with normal turgor. Normal color with no rashes, no lesions, and no evidence of cellulitis. MS/ Extremity: Pulses equal, no cyanosis. Neurovascular intact. Full, normal range of motion. Neuro: Awake and alert, GCS 15, oriented to person, place, time, and situation. Cranial nerves II-XII grossly intact. Motor strength 5/5 in all extremities. Sensory grossly intact. Cerebellar exam normal. Normal gait. 21:59 Abdomen/GI: Inspection: obese Bowel sounds: active, all quadrants, Palpation: soft, in all quadrants, mild abdominal tenderness, in the abdomen diffusely, voluntary guarding, is not appreciated, involuntary guarding, is not appreciated, no appreciated organomegaly, Indicators: McBurney's point is not tender, Ramires's sign is negative, Rovsing's sign is negative, Liver: tenderness, is not appreciated. Vital Signs: 19:21 BP 232 / 84; Pulse 76; Resp 16 S; Temp 97.2(TE); Pulse Ox 98% on R/A; Weight 79.38 kg ca1 (R); Height 5 ft. 2 in. (157.48 cm) (R); Pain 8/10; 22:00 BP 178 / 67; Pulse 56; Resp 15; Pulse Ox 97% on R/A; rv 22:58 BP 154 / 73; Pulse 66; Resp 15; Pulse Ox 97% on R/A; rv 23:39 BP 117 / 72; Pulse 72; Resp 16; Pulse Ox 98% on R/A; rv 05/18 00:10 BP 147 / 64; Pulse 62; Resp 16; Pulse Ox 99% on R/A; rv 05/17 19:21 Body Mass Index 32.01 (79.38 kg, 157.48 cm) ca1 MDM: 05/17 21:18 Patient medically screened. charley 05/18 00:17 Data reviewed: vital signs, nurses notes, lab test result(s), radiologic studies, CT jr8 scan. Data interpreted: Pulse oximetry: on room air is 99 %. Interpretation: normal. Counseling: I had a detailed discussion with the patient and/or guardian regarding: the historical points, exam findings, and any diagnostic results supporting the discharge/admit diagnosis, lab results, radiology results, the need for outpatient follow up, a family practitioner, to return to the emergency department if symptoms worsen or persist or if there are any questions or concerns that arise at home. Special discussion: I have referred the patient to see his PCP for further evaluation of high blood pressure. 05/17 21:40 Order name: Basic Metabolic Panel; Complete Time: 22:34 8 05/17 21:40 Order name: CBC with Diff; Complete Time: 22:40 8 05/17 21:40 Order name: Hepatic Function; Complete Time: 22:34 8 05/17 21:40 Order name: Lipase; Complete Time: 22:34 8 05/17 22:34 Order name: CT Abd/Pelvis - IV Contrast Only jr8 05/17 21:40 Order name: IV Saline Lock; Complete Time: 22:02 8 05/17 21:40 Order name: Labs collected and sent; Complete Time: 22: Administered Medications: 05/17 22:01 Drug: hydrALAZINE 10 mg Route: IV; Rate: calculated rate; Site: right antecubital; rv 22:30 Follow up: IV Status: Completed infusion rv Disposition: 05/18 07:57 Co-signature as Attending Physician, Jarvis Hale MD I agree with the assessment and [facility] plan of care. Disposition: 05/18/20 00:18 Discharged to Home. Impression: Generalized abdominal pain, Hypertensive Urgency. - Condition is Stable. - Discharge Instructions: Abdominal Pain, Adult, Hypertension. - Medication Reconciliation Form, Thank You Letter, Antibiotic Education, Prescription Opioid Use form. - Follow up: Herber Roy MD; When: 2 - 3 days; Reason: Recheck today's complaints, Continuance of care, Re-evaluation by your physician. - Problem is new. - Symptoms have improved. Signatures: Dispatcher [employer] EDJarvis Polk MD MD cha Roszak, Josh, PA PA jr8 Juan Melendez RN RN rv Acob, Myranda RN RN ca1 Corrections: (The following items were deleted from the chart) 00:23 00:18 05/18/2020 00:18 Discharged to Home. Impression: Generalized abdominal pain; rv Hypertensive Urgency. Condition is Stable. Forms are Medication Reconciliation Form, Thank You Letter, Antibiotic Education, Prescription Opioid Use. Follow up: Herber Roy; When: 2 - 3 days; Reason: Recheck today's complaints, Continuance of care, Re-evaluation by your physician. Problem is new. Symptoms have improved. jr8
--- NOTE | 2020-05-18 00:18 | ER ---
Nurse's Notes [facility] Name: Mary Lawson Age: 65 yrs Sex: Female : 1955 Arrival Date: 05/17/2020 Time: 19:08 Bed 8 Private MD: Herber Roy Diagnosis: Generalized abdominal pain;Hypertensive Urgency Presentation: 05/17 19:21 Chief complaint: Patient states: Been having headache and abdominal pain since Friday. ca1 Every time I try to do a BM, I get the pain. Denies N/V. Reports a little diarrhea today. Coronavirus screen: Client denies travel out of the [place] in the last 14 days. At this time, the client does not indicate any symptoms associated with coronavirus-19. Ebola Screen: Patient negative for fever greater than or equal to 101.5 degrees Fahrenheit, and additional compatible Ebola Virus Disease symptoms Patient denies exposure to infectious person. Patient denies travel to an Ebola-affected area in the 21 days before illness onset. No symptoms or risks identified at this time. Initial Sepsis Screen: Does the patient meet any 2 criteria? No. Patient's initial sepsis screen is negative. Does the patient have a suspected source of infection? No. Patient's initial sepsis screen is negative. Risk Assessment: Do you want to hurt yourself or someone else? Patient reports no desire to harm self or others. Onset of symptoms was May 17, 2020. 19:21 Method Of Arrival: Ambulatory ca1 19:21 Acuity: CONSTANCE 2 ca1 Triage Assessment: 22:03 General: Appears comfortable, Behavior is calm, cooperative. Pain: Complains of pain in rv abdomen. EENT: No signs and/or symptoms were reported regarding the EENT system. Neuro: Level of Consciousness is awake, alert, obeys commands, Oriented to person, place, time, situation. Cardiovascular: Patient's skin is warm and dry. Respiratory: Airway is patent Respiratory effort is even, unlabored. GI: Abdomen is round. Derm: Skin is intact. Historical: - Allergies: 19:25 No Known Allergies; ca1 - PMHx: 19:25 R arm surgery; Hypertension; Thyroid problem; ca1 - PSHx: 19:25 Heart Surgery; Hysterectomy; ca1 - Immunization history:: Client reports receiving the 1st dose of the Covid vaccine, April 2020 Flu vaccine is up to date. - Social history:: Smoking status: Patient denies any tobacco usage or history of. Screenin:03 Abuse screen: Denies threats or abuse. Denies injuries from another. Nutritional rv screening: No deficits noted. Tuberculosis screening: No symptoms or risk factors identified. Fall Risk None identified. Assessment: 22:04 GI: Bowel sounds present X 4 quads. Abd is soft and non tender X 4 quads. rv Vital Signs: 19:21 BP 232 / 84; Pulse 76; Resp 16 S; Temp 97.2(TE); Pulse Ox 98% on R/A; Weight 79.38 kg ca1 (R); Height 5 ft. 2 in. (157.48 cm) (R); Pain 8/10; 22:00 BP 178 / 67; Pulse 56; Resp 15; Pulse Ox 97% on R/A; rv 22:58 BP 154 / 73; Pulse 66; Resp 15; Pulse Ox 97% on R/A; rv 23:39 BP 117 / 72; Pulse 72; Resp 16; Pulse Ox 98% on R/A; rv 05/18 00:10 BP 147 / 64; Pulse 62; Resp 16; Pulse Ox 99% on R/A; rv 05/17 19:21 Body Mass Index 32.01 (79.38 kg, 157.48 cm) ca1 ED Course: 05/17 19:08 Patient arrived in ED. am2 19:08 Herber Roy MD is Private Physician. am2 19:23 Triage completed. ca1 19:25 Arm band placed on right wrist. ca1 21:11 Frandy Rojo PA is PHCP. jr8 21:11 Jarvis Hale MD is Attending Physician. jr8 21:48 Juan Melendez RN is Primary Nurse. rv 21:52 Inserted saline lock: 20 gauge in right antecubital area, using aseptic technique. rv Blood collected. 21:52 Initial lab(s) drawn, by wa, sent to lab. rv 22:04 Patient has correct armband on for positive identification. Pulse ox on. NIBP on. rv 23:25 CT Abd/Pelvis - IV Contrast Only In Process Unspecified. EDMS 05/18 00:17 Herber Roy MD is Referral Physician. jr8 00:23 No provider procedures requiring assistance completed. IV discontinued, intact, rv bleeding controlled, No redness/swelling at site. Pressure dressing applied. Administered Medications: 05/17 22:01 Drug: hydrALAZINE 10 mg Route: IV; Rate: calculated rate; Site: right antecubital; rv 22:30 Follow up: IV Status: Completed infusion rv Outcome: 05/18 00:18 Discharge ordered by MD. ny 00:23 Discharged to home ambulatory. rv 00:23 Condition: good 00:23 Discharge instructions given to patient, Instructed on discharge instructions, follow up and referral plans. Demonstrated understanding of instructions, follow-up care. 00:23 Patient left the ED. rv Signatures: Dispatcher [employer] EDMS Frandy Rojo PA PA jr8 Suzette Swanson am2 Juan Melendez, RN RN rv Myranda Morley RN RN ca1 Corrections: (The following items were deleted from the chart) 05/17 19:25 19:21 Pulse 76bpm; Resp 16bpm; Spontaneous; Pulse Ox 98% RA; Temp 97.2F Temporal; 79.38 ca1 kg Reported; Height 5 ft. 2 in. Reported; BMI: 32.0; Pain 8/10; ca1 19:42 19:21 Acuity: CONSTANCE 3 ca1 ca1
[2020-05-18 04:40] VITALS: TEMP 97.2
[2020-05-18 04:45] VITALS: BP 147/64; O2SAT 99
--- NOTE | 2020-05-18 14:18 | RAD REPORT ---
EXAM DESCRIPTION: CT - Abdomen Pelvis W Contrast - 05/18/2020 7:04 am CLINICAL HISTORY: The patient is 65 years old and is Female; ABD PAIN TECHNIQUE: Axial computed tomography images of the abdomen and pelvis with intravenous contrast. S agittal and coronal reformatted images were created and reviewed. This CT exam was performed using one or more of the following dose reduction techniques: automated exposure control, adjustment of t he mA and/or kV according to patient size, and/or use of iterative reconstruction technique. COMPARISON: No relevant prior studies available. FINDINGS: LUNG BASES: Unremarkable. No mass. No consolidation. ABDOMEN: LIVER: The liver is enlarged and mildly fatty. A 1.4 cm low attenuating lesion within the right h epatic lobe is present. The liver is otherwise unremarkable. GALLBLADDER AND BILE DUCTS: No calcified stones. No ductal dilation. PANCREAS: No ductal dilation. No mass. SPLEEN: Unremarkable. ADRENALS: Unremarkable. No mass. KIDNEYS AND URETERS: Unremarkable. The kidneys enhance symmetrically. No obstructing renal or ur eteral calculus is seen. No hydronephrosis or hydroureter. No perinephric fluid or stranding. STOMACH AND BOWEL: The stomach is minimally distended with food contents. The small bowel is rel atively normal in caliber. Stool is present throughout colon. There is no mucosal thickening or evide nce of bowel obstruction. PELVIS: APPENDIX: The appendix is normal in caliber without surrounding inflammation. BLADDER: The bladder is moderately distended. REPRODUCTIVE: The patient is status post hysterectomy. ABDOMEN and PELVIS: INTRAPERITONEAL SPACE: Unremarkable. No free air. No significant fluid collection. BONES/JOINTS: Minimal degenerative change of the lower lumbar spine is present. SOFT TISSUES: Lipoma within the right iliacus muscle is present. VASCULATURE: Unremarkable. No abdominal aortic aneurysm. LYMPH NODES: Unremarkable. No enlarged lymph nodes. IMPRESSION: No acute findings on this contrasted CT of the abdomen and pelvis to explain the patient 's symptoms. Electronically signed by: Debbie Stafford MD 05/17/2020 11:32 PM CDT Due to temporary technical issues with the PACS/Fluency reporting system, reports are being signed by the in house radiologist without review as a courtesy to ensure prompt reporting. The interpreting r adiologist is fully responsible for the content of the report.
== END 2020-05-18 00:23 | disposition home or self-care (01) ==
LOC: ER 18:53
DX: I16.0 Hypertensive urgency (principal); R10.84 Generalized abdominal pain; I10 Essential (primary) hypertension
CPT/HCPCS: 96365; 85025; 80048; 36415; 80076; 83690; 74177; 99284; Q9967; J0360

== ENCOUNTER 2024-03-19 08:35 | Day surgery (SDC) | payer OTHER ==
[2024-03-19] MEDS: Ringers Lactate 1,000 ML IV ONE (09:45)
[2024-03-19 10:12] LABS: Absolute Basophils 0.1 K/uL (0-0.5); Absolute Eosinophils 0.2 K/uL (0-0.5); Absolute Lymphocytes (CBC) 1.5 K/uL (0.7-4.9); Absolute Monocytes 0.6 K/uL (0.1-1.3); Absolute Neutrophil 4.2 K/uL (1.8-8.0); Basophils % 1.1 % (0-1.3); Eosinophils % 3.4 % (0-4.4); Hematocrit 37.6 % (36.0-45.0); Lymphocytes % 22.3 % (15.3-44.8); MCH 30.9 pg (27.0-35.0); MCHC 34.5 g/dL (32.0-36.0); MCV 89.4 fL (80-100); Monocytes % 8.6 % (3.3-12.3); Neutrophils % 64.6 % (41.7-73.7); Platelets 250 thou/uL (152-406); Red Cell Distribution Width 13.7 % (12.1-15.2)
[2024-03-19 10:20] LABS: PT Prothrombin Time 11.6 SECONDS (9.4-12.5); PTT, Activated Partial Thromb 27.6 SECONDS (24.3-36.9); Protime INR 1.11
[2024-03-19 10:27] LABS: Anion Gap 8.8 mEq/L (5.0-15.0); Potassium 3.8 mEq/L (3.5-5.1)
[2024-03-19] MEDS ORDERED: FENTANYL CITR 100 MCG/2 ML ONE (11:48)
[2024-03-19] MEDS ORDERED: LIDOCAINE 2% MPF 5 ML VIAL ONE (11:48)
[2024-03-19] MEDS ORDERED: ONDANSETRON 4 MG/2 ML VIAL ONE (11:48)
[2024-03-19] MEDS ORDERED: propofoL 200 MG/20 ML VIAL IV ONE (11:48)
[2024-03-19] MEDS ORDERED: GLYCOPYRROLATE 0.2 MG/ML SYR ONE (12:05)
[2024-03-19] MEDS: CEFAZOLIN SODIUM 1 GM/VIAL ONE (12:08)
[2024-03-19] MEDS ORDERED: dexAMETHasone 10 MG/ML VIAL ONE (12:11)
[2024-03-19] MEDS ORDERED: EPHEDRINE SULF 50 MG/ML VIAL ONE (12:17)
[2024-03-19] MEDS: LIDOCAINE HCL/EPINEPHRINE 20 ML MDV ONE (12:24)
--- NOTE | 2024-03-19 12:56 | P.OP ---
Preoperative diagnosis: RIGHT Buttock Partially Intramuscular Lipoma Postoperative diagnosis: RIGHT Buttock Partially Intramuscular Lipoma Primary procedure: Wide Exicison of RIGHT Buttock Partially Intramuscular Lipoma Anesthesia: GETA + Local Estimated blood loss: <5cc Specimen: Lipomatous Tissue Findings: Partially intramuscular lipomatous masses, Complications: None Transferred to: Recovery Room Condition: Good
[2024-03-19 14:37] VITALS: BP 124/66; TEMP 97; O2SAT 100
--- NOTE | 2024-03-19 15:06 | EKG ---
Test Date: 2024-03-19 Test Time: 11:00:47 Snath Handle Assembler: REBECCA MEASUREMENT RESULTS: Intervals: Rate: 52 PA: 188 QRSD: 108 QT: 436 QTc: 405 [place]: P: 51 PA: 188 QRS: 3 T: 34 INTERPRETIVE STATEMENTS: Sinus bradycardia Minimal voltage criteria for LVH, may be normal variant Borderline ECG Compared to ECG 04/03/2000 12:30:00 Left ventricular hypertrophy now present Electronically Signed On 03-19-24 15:05:34 MANAGER OF ENGINEERING by Alejandro Cm
--- NOTE | 2024-03-19 23:20 | OP ---
Date of Procedure: 03/19/2024 Surgeon: Humberto Borrego MD, Preoperative Diagnosis: Right buttock partially intramuscular lipoma. Postoperative Diagnosis: Right buttock partially intramuscular lipoma. Procedure: Wide excision of right partially intramuscular buttock lipoma. Anesthesia: General endotracheal plus local, 1% lidocaine. Estimated Blood Loss: Less than 5 cc. Specimen: Lipomatous tissue. Findings: There was a partially intramuscular lipomatous tissue consistent with a multilobulated brandon ign-appearing mass with a partially intramuscular component at the right buttock area into the gluteu s gilles muscle very superficially. This was removed in its entirety in addition with the subcutane ous component, it was approximately 4 cm x 3 cm x 3 cm in total size. Complications: None. Disposition: The patient was transferred to recovery room in good condition. Procedure In Detail: After informed consent was obtained, the patient was brought to the operating r oom, prepped in the usual sterile fashion. After adequate anesthesia was achieved, I made a linear i ncision down through subcutaneous tissues with a 15 blade, dissected down to subcutaneous tissues als o with electrocautery to encounter the lipomatous mesh. This was circumferentially dissected out in a piecemeal type fashion as it was lobulated and friable. It was sent off for pathologic examination . No malignant appearance was noted. I dissected down and found a small portion of intramuscularly permeating between the muscular fibers, which was gently and removed without cutting any of the muscle. Separation was achieved with simple hemostats at this point in the very superficial lay er of the gluteus gilles muscle. This was then sent off for pathologic examination in the piecemeal fashion after all abnormal tissue was removed. The area was copiously irrigated multiple times unti l completely clear. No hemostat was required. The area was inspected 1 last time. No hemostasis wa s required. Muscle was good and viable at the end of the procedure. I then reapproximated the deep dermal plane using 3-0 Vicryl suture and the skin was closed with a 4-0 Monocryl in a running fashion . Dermabond was placed over top. The patient tolerated procedure without incident or complication, transferred to PACU in good condition. All counts were correct at the end of the case. TK/MODL Voice ID: [id number] Report ID: [id number]
== END 2024-03-19 14:16 | disposition home or self-care (01) ==
LOC: OR 08:35
PROVIDERS: ATTEND Surgery
PROC: 0JB90ZZ Excision of Buttock Subcutaneous Tissue and Fascia, Open Approach (ICD-10-PCS; principal; 2024-03-19 13:15)
DX: D17.9 Benign lipomatous neoplasm, unspecified (principal)
CPT/HCPCS: 93005; 85025; 80048; 36415; 85610; 88304; 85730; 11406; J2704; J2003; J3010; J1100; J2405; J7120; J0690

== ENCOUNTER 2024-06-02 09:00 | Day surgery (SDC) | payer OTHER ==
[2024-06-01 14:43] LABS: Absolute Basophils 0.1 K/uL (0-0.5); Absolute Eosinophils 0.3 K/uL (0-0.5); Absolute Monocytes 0.5 K/uL (0.1-1.3); Absolute Neutrophil 4.7 K/uL (1.8-8.0); Eosinophils % 3.8 % (0-4.4); Hematocrit 39.5 % (36.0-45.0); Hemoglobin 13.5 g/dL (12.0-15.0); Lymphocytes % 26.2 % (15.3-44.8); MCH 30.4 pg (27.0-35.0); MCHC 34.1 g/dL (32.0-36.0); MPV 8.5 fL (7.6-11.3); Monocytes % 6.9 % (3.3-12.3); Neutrophils % 62.1 % (41.7-73.7); Nucleated Red Blood Cells % 0.2 % (0-0); Platelets 284 thou/uL (152-406); RBC Red Blood Cell Count 4.44 M/uL (3.86-4.86); Red Cell Distribution Width 12.7 % (12.1-15.2)
[2024-06-01 14:55] LABS: PT Prothrombin Time 28.5 SECONDS (10-13.0); PTT, Activated Partial Thromb 39.1 SECONDS (27.2-37.4); Protime INR 2.62
[2024-06-01 15:11] LABS: Anion Gap 11.4 mEq/L (5.0-15.0); Potassium 3.4 mEq/L (3.5-5.1)
[2024-06-02] MEDS ORDERED: Ringers Lactate 1,000 ML IV ONE (09:53)
[2024-06-02 10:14] LABS: PT Prothrombin Time 24.7 SECONDS (10-13.0); PTT, Activated Partial Thromb 35.4 SECONDS (27.2-37.4); Protime INR 2.25
[2024-06-02 10:59] VITALS: BP 143/53; TEMP 98; O2SAT 98
== END 2024-06-02 10:45 | disposition home or self-care (01) ==
LOC: OR 09:00
PROVIDERS: ATTEND Surgery
DX: Z12.11 Encounter for screening for malignant neoplasm of colon (principal); Z53.09 Procedure and treatment not carried out because of other contraindication
CPT/HCPCS: 85025; 80048; 36415; 85610 ×2; 85730 ×2; J7120

== ENCOUNTER 2024-06-03 09:36 | Day surgery (SDC) | payer OTHER ==
[2024-06-03 10:07] LABS: PT Prothrombin Time 19.8 SECONDS (10-13.0); PTT, Activated Partial Thromb 32.6 SECONDS (27.2-37.4); Protime INR 1.79
[2024-06-03] MEDS ORDERED: Ringers Lactate 1,000 ML IV ONE (10:26)
[2024-06-03] MEDS ORDERED: LIDOCAINE 1% MPF 30 ML VIAL ONE (11:22)
[2024-06-03] MEDS ORDERED: propofoL 200 MG/20 ML VIAL IV ONE (11:22)
[2024-06-03 13:11] VITALS: BP 113/94; TEMP 97.4; O2SAT 99
== END 2024-06-03 12:49 | disposition home or self-care (01) ==
LOC: OR 09:36
PROVIDERS: ATTEND Surgery
PROC: 0DJD8ZZ Inspection of Lower Intestinal Tract, Via Natural or Artificial Opening Endoscopic (ICD-10-PCS; principal; 2024-06-03 12:00)
DX: Z12.11 Encounter for screening for malignant neoplasm of colon (principal); K64.8 Other hemorrhoids
CPT/HCPCS: 36415; 85610; 85730; J2003; J2704; J7120